=== PATIENT | female | born 1955 | race Caucasian/White ===

== ENCOUNTER → 2016-10-11 | Outpatient (CLI) | payer BC ==
[~2016-10-11] MED LIST: ASCA500 PO; B-COTAB18 PO; CALC-20 PO; CLR10 PO; MULT-506 PO; OMEG10007 PO; TRIA1SPR4 NAE; [UNRECOGNIZED DRUG - OTHER] PO
--- NOTE | 2016-10-11 16:44 | MAMMOGRAPHY REPORT ---
BILATERAL DIGITAL SCREENING MAMMOGRAM TOMOSYNTHESIS WITH CAD: 10/11/2016 CLINICAL HISTORY: Routine screening. Patient has no complaints. TECHNIQUE: Breast tomosynthesis in addition to standard 2D mammography was performed. Current study was also evaluated with a Computer Aided Detection (CAD) system. COMPARISON: Comparison is made to exams dated: 10/09/2015 mammogram, 10/04/2013 mammogram, 10/07/2014 danuta mogram, 10/02/2012 mammogram, 09/30/2011 mammogram, and 09/20/2010 mammogram - [facility]. BREAST COMPOSITION: There are scattered areas of fibroglandular density in both breasts. FINDINGS: No suspicious masses, calcifications, or areas of architectural distortion are noted in e ither breast. There has been no significant interval change compared to prior exams. There is minim al architectural distortion seen within the right medial posterior breast, which is stable compared to prior exams. This area was marked with a scar marker on the prior 2006 exam, indicating that the distortion is compatible with postsurgical changes. IMPRESSION: ACR BI-RADS CATEGORY 2: BENIGN There is no mammographic evidence of malignancy. A 1 year screening mammogram is recommended. The p atient will receive written notification of the results. Approximately 10% of breast cancers are not detected with mammography. A negative mammographic repor t should not delay biopsy if a clinically suggestive mass is present. Anali Guerra M.D. /:10/11/2016 15:35:03 Forge Tender: Christina GUTIÉRREZ(Zachary)([place]), [facility] letter sent: Normal 1/2 BI-RADS Code: ACR BI-RADS Category 2: Benign
== END | disposition home or self-care (01) ==
LOC: C.MAMM 10:30
PROVIDERS: ATTEND Obstetrics & Gynecology
DX: Z12.31 Encounter for screening mammogram for malignant neoplasm of breast (principal)

== ENCOUNTER → 2017-06-30 | Outpatient (CLI) | payer BC ==
[2017-06-30 13:57] LABS: BLOOD UREA NITROGEN 9 mg/dl (7-18); BUN/CREATININE RATIO 13.1 (10-20); CALCIUM 8.9 mg/dl (8.5-10.1); CARBON DIOXIDE 29 mmol/L (21-32); CHLORIDE 107 mmol/L (98-107); CHOLESTEROL 222 mg/dl (0-200); CREATININE 0.66 mg/dl (0.60-1.20); GLUCOSE 96 mg/dl (70-99); POTASSIUM 3.6 mmol/L (3.5-5.1); SODIUM 142 mmol/L (136-145); TRIGLYCERIDES 128 mg/dl (0-150); VERY LOW DENSITY LIPOPROT CALC 26 mg/dl
[2017-06-30 13:59] LABS: CHOLESTEROL/HDL RATIO 3.5; HDL CHOLESTEROL 63 mg/dl; LDL CHOLESTEROL CALCULATED 133 mg/dl
== END | disposition home or self-care (01) ==
LOC: C.LABBC 10:22
PROVIDERS: ATTEND Physician Assistant
DX: Z11.59 Encounter for screening for other viral diseases (principal); E78.5 Hyperlipidemia, unspecified

== ENCOUNTER → 2017-07-21 | Outpatient (CLI) | payer BC | END | disposition home or self-care (01) | LOC: C.PAPS 11:45 | PROVIDERS: ATTEND Obstetrics & Gynecology | DX: Z01.419 Encounter for gynecological examination (general) (routine) without abnormal findings (principal) ==

== ENCOUNTER → 2017-10-13 | Outpatient (CLI) | payer OTHER ==
--- NOTE | 2017-10-13 15:18 | MAMMOGRAPHY REPORT ---
BILATERAL DIGITAL SCREENING MAMMOGRAM TOMOSYNTHESIS WITH CAD: 10/13/2017 CLINICAL HISTORY: Routine screening. Patient has no complaints. TECHNIQUE: Bilateral breast tomosynthesis in addition to standard 2D mammography was performed. Curre nt study was also evaluated with a Computer Aided Detection (CAD) system. COMPARISON: Comparison is made to exams dated: 10/11/2016 mammogram, 10/09/2015 mammogram, 10/07/2014 danuta mogram, 10/04/2013 mammogram, 10/02/2012 mammogram, and 09/30/2011 mammogram - [facility]. BREAST COMPOSITION: There are scattered areas of fibroglandular density in both breasts. FINDINGS: There is a possible area of architectural distortion in the 12:00 to 1:00 posterior right breast, for which additional spot compression tomosynthesis views and possible ultrasound are recomme nded. This is best identified on CC tomosynthesis slice 53/81 and MLO tomosynthesis slice 50/75. No other suspicious mass, architectural distortion or cluster of microcalcifications is seen bilmalicka emerson. IMPRESSION: ACR BI-RADS CATEGORY 0: INCOMPLETE EVALUATION: NEED ADDITIONAL IMAGING EVALUATION The possible area of architectural distortion in the 12:00 to 1:00 posterior right breast needs addit ional evaluation. The patient will be called to schedule an appointment. Approximately 10% of breast cancers are not detected with mammography. A negative mammographic report should not delay biopsy if a clinically suggestive mass is present. Richa Aguila M.D. ay/:10/13/2017 11:20:45 Supervisor Dehydrogenation: Jennifer GUTIÉRREZ(Zachary)(M), [facility] letter sent: Addl Imaging 0 BI-RADS Code: ACR BI-RADS Category 0: Incomplete Evaluation: Need Additional Imaging Evaluation
== END | disposition home or self-care (01) ==
LOC: C.MAMM 10:08
PROVIDERS: ATTEND Obstetrics & Gynecology
DX: Z12.31 Encounter for screening mammogram for malignant neoplasm of breast (principal); R92.8 Other abnormal and inconclusive findings on diagnostic imaging of breast

== ENCOUNTER → 2017-10-23 | Outpatient (CLI) | payer OTHER ==
--- NOTE | 2017-10-23 14:02 | MAMMOGRAPHY REPORT ---
UNILATERAL RIGHT DIGITAL DIAGNOSTIC MAMMOGRAM TOMOSYNTHESIS: 10/23/2017 CLINICAL HISTORY: 62-year-old woman called back from screening mammography for a focal area of tesha ectural distortion in the 12:00 to 1:00 far posterior right breast. Patient reports a history of ny or right breast surgery and a linear scar marker was placed over the faintly visible skin surgical sc ar prior to the spot compression tomosynthesis images. TECHNIQUE: Spot compression right CC and MLO tomosynthesis images were obtained. COMPARISON: Comparison is made to exams dated: 10/13/2017 mammogram, 10/11/2016 mammogram, 10/09/2015 ma mmogram, 10/07/2014 mammogram, 10/04/2013 mammogram, and 10/02/2012 mammogram - [facility] BREAST COMPOSITION: There are scattered areas of fibroglandular density in the right breast. FINDINGS: A linear scar marker overlies the 12:00 middle to posterior right breast. Scar marker is d irectly anterior to the focal area of distortion in both projections, confirming it is postsurgical d istortion. There is no other area of suspicious distortion, mass, asymmetry or suspicious calcificat ions. This finding is benign and recommend return to annual screening mammography schedule. IMPRESSION: ACR BI-RADS CATEGORY 2: BENIGN The focal architectural distortion in the 12:00 posterior right breast is compatible with benign post surgical scarring. There is no mammographic evidence of malignancy in the right breast. Return to a nnual mammogram screening schedule is recommended. The patient has been verbally notified of the res ults. Approximately 10% of breast cancers are not detected with mammography. A negative mammographic report should not delay biopsy if a clinically suggestive mass is present. Richa Aguila M.D. ay/:10/23/2017 09:45:37 Pickle Maker: Jennifer CHAHAL)([place]), [facility] letter sent: Normal 1/2 BI-RADS Code: ACR BI-RADS Category 2: Benign
== END | disposition home or self-care (01) ==
LOC: C.MAMM 09:22
PROVIDERS: ATTEND Obstetrics & Gynecology
DX: N64.89 Other specified disorders of breast (principal)